=== PATIENT | female | born 1990 | race Hispanic/Latino ===

== ENCOUNTER 2023-11-07 20:24 | Emergency (ER) | payer BC, SELFPAY ==
[~2023-11-07] VITALS: Ht 162.6 cm; Wt 128.8 kg
[2023-11-07 20:56] LABS: BASOPHILS # (AUTO) 0.05 K/uL (0.00-0.20); BASOPHILS % (AUTO) 0.4 % (0.0-5.0); EOSINOPHILS # (AUTO) 0.28 K/uL (0.00-0.70); EOSINOPHILS % (AUTO) 2.4 % (0.0-8.0); HEMATOCRIT 40.3 % (36-48); IMMATURE GRANULOCYTE ABSOLUTE 0.04 K/uL (0-1); LYMPHOCYTES # (AUTO) 3.1 K/uL (1.0-4.8); LYMPHOCYTES % (AUTO) 26.2 % (21.0-51.0); MEAN CORPUSCULAR HEMOGLOBIN 24.5 pg (27.0-33.0); MEAN CORPUSCULAR VOLUME 76.6 fL (79-99); MONOCYTES # (AUTO) 0.6 K/uL (0.1-1.0); NEUTROPHILS # (AUTO) 7.7 K/uL (1.8-7.7); NEUTROPHILS % (AUTO) 65.7 % (40.0-77.0); PLATELET COUNT (AUTO) 295 K/uL (130-400); RED BLOOD CELL COUNT(AUTO) 5.26 MIL/uL (4.00-5.50); RED CELL DISTRIBUTION WIDTH 15.8 % (11.0-15.5); WHITE BLOOD COUNT (AUTO) 11.7 K/uL (4.8-10.8)
[2023-11-07] MEDS: CLINDAMYCIN 150 MG CAP PO ONE (21:06)
[2023-11-07] MEDS: acetaMINOPHEN 500 MG TABLET PO ONE (21:07)
[2023-11-07 21:18] LABS: APPEARANCE,URINE CLOUDY (CLEAR); BILIRUBIN,URINE NEGATIVE (NEGATIVE); COLOR,URINE YELLOW (YELLOW); GLUCOSE, URINE (UA) NEGATIVE (NEGATIVE); KETONES,URINE NEGATIVE (NEGATIVE); LEUKOCYTE ESTERASE ,URINE 250 Leu/uL (NEGATIVE); NITRATE,URINE NEGATIVE (NEGATIVE); OCCULT BLOOD,URINE SMALL (NEGATIVE); PROTEIN,URINE 30 mg/dL (NEGATIVE); UROBILINOGEN,URINE 6 mg/dL (0.2-1.0)
[2023-11-07 21:21] LABS: ADD UA MICROSCOPIC YES
[2023-11-07] MEDS: LIDOCAINE HCL 1% 20 ML VIAL INJ SCH (21:22)
[2023-11-07 21:25] LABS: BACTERIA,URINE RARE /HPF (None Seen); MUCUS,URINE MOD LPF (None Seen); SQUAMOUS EPITHELIAL CELL,UR FEW /HPF (0-2)
[2023-11-07 21:35] LABS: CREATININE 0.6 mg/dL (0.5-1.0); POTASSIUM 3.6 mmol/L (3.5-5.1)
[2023-11-07 21:41] LABS: ALBUMIN 3.1 g/dL (3.5-5.0); BILIRUBIN,TOTAL 0.5 mg/dL (0.2-1.0); TOTAL PROTEIN, SERUM 8.3 g/dL (6.0-8.3)
[2023-11-07] MEDS ORDERED: CLIN-141 PO (21:47)
[2023-11-07] MEDS ORDERED: ACET-2079 PO (21:47)
[2023-11-07] MEDS: acetaMINOPHEN WITH coDEINE 1 TAB TAB PO ONE (21:49)
[2023-11-07 22:10] VITALS: BP 152/74; PULSE 84; RESP 20; O2SAT 97
== END 2023-11-07 22:15 | disposition home or self-care (01) ==
LOC: EDH 20:24
DX: L02.211 Cutaneous abscess of abdominal wall (principal)
CPT/HCPCS: 10060; 36415; 76705; 80053; 81001; 81025; 85025; 87070; 87086